=== PATIENT | female | born 1960 | race Asian ===

== ENCOUNTER 2023-09-12 23:53 | Emergency (ER) | payer OTHER ==
[~2023-09-12] VITALS: Ht 160 cm; Wt 72.6 kg
[2023-09-12 23:55] VITALS: BP 165/85; PULSE 98; RESP 18; TEMP 97.6; O2SAT 98
[2023-09-13 02:42] VITALS: BP 165/85; PULSE 98; RESP 18; TEMP 97.6; O2SAT 98
== END 2023-09-13 02:42 | disposition home or self-care (01) ==
LOC: MED 23:53
DX: S01.01XA Laceration without foreign body of scalp, initial encounter (principal); I10 Essential (primary) hypertension; W01.198A Fall on same level from slipping, tripping and stumbling with subsequent striking against other object, initial encounter; Y92.89 Other specified places as the place of occurrence of the external cause; Y93.89 Activity, other specified; Y99.8 Other external cause status
CPT/HCPCS: 12001; 70450; 72125; 90471; 90715; 99285

== ENCOUNTER 2023-09-30 10:17 | Emergency (ER) | payer OTHER ==
[~2023-09-30] VITALS: Ht 157.5 cm; Wt 59.0 kg
[2023-09-30 10:25] VITALS: BP 159/83; PULSE 77; RESP 18; TEMP 98.3; O2SAT 99
== END 2023-09-30 11:47 | disposition home or self-care (01) ==
LOC: MED 10:17
DX: S01.01XD Laceration without foreign body of scalp, subsequent encounter (principal); I10 Essential (primary) hypertension; X58.XXXD Exposure to other specified factors, subsequent encounter
CPT/HCPCS: 99281